=== PATIENT | female | born 1950 | race Caucasian/White ===

== ENCOUNTER 2017-09-18 08:00 | Outpatient (CLI) | payer MEDICARE, OTHER ==
--- NOTE | 2017-09-18 13:06 | PET ---
PET SCAN WITH CT ATTENUATION CORRECTION: HISTORY: 66-year-old female. Breast cancer survivor. Staging/restaging. COMPARISON: 09/05/16, 02/20/17. TECHNIQUE: PET scanning with CT attenuation correction is performed from the base of the brain to the proximal t highs following the intravenous administration of 9.37 mCi F18-FDG. FINDINGS: HEAD/NECK: No abnormal FDG localization. CHEST: No abnormal FDG localization. Note is made of a left-sided diaphragmatic hernia, unchanged. ABDOMEN/PELVIS: No abnormal FDG localization. OSSEOUS STRUCTURES: No abnormal FDG localization. IMPRESSION: No abnormal FDG localization. POS: TC
== END 2017-09-18 08:01 | disposition home or self-care (01) ==
LOC: PET 08:00
PROVIDERS: ATTEND Internal Medicine Hematology & Oncology
DX: C50.919 Malignant neoplasm of unspecified site of unspecified female breast (principal); C78.2 Secondary malignant neoplasm of pleura
CPT/HCPCS: 78815; A9552

== ENCOUNTER 2017-11-15 13:43 | Outpatient (CLI) | payer MEDICARE, OTHER | END 2017-11-15 13:44 | disposition home or self-care (01) | LOC: ULT 13:43 | PROVIDERS: ATTEND Internal Medicine Hematology & Oncology | DX: Z51.11 Encounter for antineoplastic chemotherapy (principal); Z23 Encounter for immunization; C78.2 Secondary malignant neoplasm of pleura; Z79.899 Other long term (current) drug therapy; Z85.3 Personal history of malignant neoplasm of breast | CPT/HCPCS: 93306 ==

== ENCOUNTER 2018-03-12 11:35 | Outpatient (CLI) | payer MEDICARE, OTHER ==
--- NOTE | 2018-03-12 15:40 | PET ---
PET CT: COMPARISON: 09/18/17. CLINICAL HISTORY: Breast cancer, follow-up. FINDINGS: There is no abnormal hypermetabolic mass or adenopathy identified within the neck, chest, abdomen, or pelvis. No hypermetabolic osseous lesions are seen. Prominent sized left side diaphragmatic hernia i s present without inflammation. Incidental note of vascular disease. There are nonspecific ground-gla ss alveolar opacities of the lungs and a slight degree of pleural thickening and subpleural interstit ial prominence, which may be related to sequelae from radiation therapy. IMPRESSION: No scintigraphic evidence of metastatic disease. POS: TC
== END 2018-03-12 11:36 | disposition home or self-care (01) ==
LOC: ULT 11:35
PROVIDERS: ATTEND Internal Medicine Hematology & Oncology
DX: Z51.11 Encounter for antineoplastic chemotherapy (principal); C50.412 Malignant neoplasm of upper-outer quadrant of left female breast; C78.2 Secondary malignant neoplasm of pleura; I08.3 Combined rheumatic disorders of mitral, aortic and tricuspid valves; Z79.899 Other long term (current) drug therapy
CPT/HCPCS: 78815; 93306; A9552

== ENCOUNTER 2018-08-29 07:51 | Outpatient (CLI) | payer MEDICARE, OTHER ==
--- NOTE | 2018-08-29 12:17 | PET ---
PET WITH CT SKULL TO MID THIGH: CLINICAL HISTORY: Breast cancer, malignant neoplasm of upper outer quadrant of left female breast, follow-up. Reference made to 03/12/18. RADIOPHARMACEUTICAL: 9.7 mCi F18-FDG IV. FINDINGS: There is no new hypermetabolic activity of the neck, chest, abdomen, or pelvis to indicate interval d evelopment of metastatic disease. There is a focus of increased activity along the course of the sigm oid colon immediately abutting the urinary bladder, nonspecific. There is a large left diaphragmatic hernia which contains stomach and regional bowel. Nonspecific mosaic attenuation of the pulmonary par enchyma is seen, although is obscured by respiratory motion artifact. There is no new hypermetabolic osseous lesion evident. No significant interval detrimental change. IMPRESSION: 1. No scintigraphic evidence of metastatic disease. 2. Nonspecific mild increased activity along the course of the sigmoid colon abutting the urinary bl adder, some of which could relate to misregistration. The possibility of colitis or mural based lesio n cannot be entirely excluded. If not recently performed, age-appropriate colonic screening would be indicated for further assessment. Correlate clinically in this regard. POS: TC
== END 2018-08-29 07:52 | disposition home or self-care (01) ==
LOC: PET 07:51
PROVIDERS: ATTEND Internal Medicine Hematology & Oncology
DX: Z51.11 Encounter for antineoplastic chemotherapy (principal); C50.919 Malignant neoplasm of unspecified site of unspecified female breast; Z79.899 Other long term (current) drug therapy
CPT/HCPCS: 78815; 93306; A9552

== ENCOUNTER 2018-12-25 12:02 | Outpatient (CLI) | payer MEDICARE, OTHER | END 2018-12-25 12:03 | disposition home or self-care (01) | LOC: ULT 12:02 | PROVIDERS: ATTEND Internal Medicine Hematology & Oncology | DX: Z51.11 Encounter for antineoplastic chemotherapy (principal); C50.412 Malignant neoplasm of upper-outer quadrant of left female breast; C78.2 Secondary malignant neoplasm of pleura; I08.3 Combined rheumatic disorders of mitral, aortic and tricuspid valves; Z79.899 Other long term (current) drug therapy | CPT/HCPCS: 93306 ==

== ENCOUNTER 2019-02-21 12:40 | Outpatient (CLI) | payer MEDICARE, OTHER | END 2019-02-21 12:41 | disposition home or self-care (01) | LOC: ULT 12:40 | PROVIDERS: ATTEND Internal Medicine Hematology & Oncology | DX: Z51.11 Encounter for antineoplastic chemotherapy (principal); C50.412 Malignant neoplasm of upper-outer quadrant of left female breast; I08.3 Combined rheumatic disorders of mitral, aortic and tricuspid valves; Z79.899 Other long term (current) drug therapy | CPT/HCPCS: 93306 ==

== ENCOUNTER 2019-03-06 08:10 | Outpatient (CLI) | payer MEDICARE, OTHER ==
--- NOTE | 2019-03-06 09:58 | PET ---
EXAM: PET CT skull to mid thigh COMPARISON: PET/CT 08/29/2018 HISTORY: Malignant neoplasm upper outer quadrant of the left breast TECHNIQUE: A PET/CT was performed from the skull to the mid thigh after administration of 10.8 millic uries of F-18 FDG. Evaluation was performed on a [employer] workstation. FINDINGS: NECK: No areas of hypermetabolic activity CHEST: There are multiple small subcentimeter focal areas of consolidation which appears slightly mas s like in the posterior aspect of the right lower lobe with maximum SUV value of 2.5. These were not seen on the prior examination. ABDOMEN/PELVIS: No areas of hypermetabolic activity SKELETON: No areas of hypermetabolic activity CT images used for attenuation correction show the patient to have undergone bilateral mastectomies. There is a left-sided Mediport with its tip in the superior vena cava.. IMPRESSION: Areas of hypermetabolic activity in the right lower lobe are nonspecific and could repres ent an infiltrate or recurrent disease. A repeat examination should be performed after treatment for pneumonia.
== END 2019-03-06 08:11 | disposition home or self-care (01) ==
LOC: PET 08:10
PROVIDERS: ATTEND Internal Medicine Hematology & Oncology
DX: C50.412 Malignant neoplasm of upper-outer quadrant of left female breast (principal); C78.2 Secondary malignant neoplasm of pleura; J18.9 Pneumonia, unspecified organism
CPT/HCPCS: 78815; A9552

== ENCOUNTER 2019-04-14 12:00 | Outpatient (CLI) | payer MEDICARE, OTHER ==
[~2019-04-14 12:00] MED LIST: Iopamidol 370 76% 100 ML VIAL ONE
--- NOTE | 2019-04-14 14:17 | CT ---
EXAM: CT of the chest with contrast HISTORY: Left lung mass; history of breast cancer COMPARISON: PET/CT 03/06/2019 TECHNIQUE: Multiple contiguous axial images were obtained in a CT the chest with contrast. Coronal re formats were performed. FINDINGS: HEART: Normal in size without focal cardiac abnormality MEDIASTINUM: No hilar or mediastinal lymphadenopathy. There is elevation of the left hemidiaphragm. LUNGS: No focal infiltrates, nodules, or masses. The previously seen area of groundglass opacity/airs pace opacity in the right lower lobe associated with hypermetabolic activity has almost completely resolved and likely represented an infiltrate. PLEURAL SPACE: No pneumothorax or pleural effusion. CHEST WALL SOFT TISSUES: There is a left-sided Mediport with its tip in the superior vena cava. OSSEOUS STRUCTURES: Degenerative changes in the spine. VISUALIZED SUBDIAPHRAGMATIC STRUCTURES: Unremarkable IMPRESSION: Near complete resolution of the right lower lobe opacity seen on prior exam. This likely represented an infiltrate.
== END 2019-04-14 12:01 | disposition home or self-care (01) ==
LOC: CT 12:00
PROVIDERS: ATTEND Internal Medicine Hematology & Oncology
DX: Z51.11 Encounter for antineoplastic chemotherapy (principal); C50.412 Malignant neoplasm of upper-outer quadrant of left female breast; C78.2 Secondary malignant neoplasm of pleura; R93.7 Abnormal findings on diagnostic imaging of other parts of musculoskeletal system; I08.3 Combined rheumatic disorders of mitral, aortic and tricuspid valves; Z79.899 Other long term (current) drug therapy
CPT/HCPCS: 71260; 93306; Q9967

== ENCOUNTER 2019-09-04 08:09 | Outpatient (CLI) | payer MEDICARE, OTHER ==
--- NOTE | 2019-09-04 12:09 | PET ---
PET CT: HISTORY: 68-year-old female with malignant neoplasm of upper outer quadrant of the left female breast. Patient is ongoing chemotherapy. TECHNIQUE: PET scanning with CT attenuation correction was performed from the base of the brain through the prox imal thighs following the intravenous administration of 11.3 mCi F18-FDG in the left-sided MediPort. COMPARISON: PET CT of 03/06/19. FINDINGS: No marianna hypermetabolism is seen in the neck, chest, axilla, abdomen, or pelvis. No hypermetabolic pu lmonary nodules, liver, adrenal, or skeletal lesions are identified. There is physiologic activity in the GI and tracts, heart, and the visualized portions of the brai n. The CT scan used for attenuation correction demonstrates no evidence of pleural effusions or ascites. Left-sided diaphragmatic hernia containing colon and stomach in the left lower hemithorax is again s een. IMPRESSION: No scintigraphic evidence of metastatic disease. POS: TC
== END 2019-09-04 08:10 | disposition home or self-care (01) ==
LOC: PET 08:09
PROVIDERS: ATTEND Internal Medicine Hematology & Oncology
DX: C50.412 Malignant neoplasm of upper-outer quadrant of left female breast (principal); C78.2 Secondary malignant neoplasm of pleura
CPT/HCPCS: 78815; A9552

== ENCOUNTER 2019-11-18 09:48 | Outpatient (CLI) | payer MEDICARE, OTHER ==
--- NOTE | 2019-11-18 11:21 | CT ---
CTA OF THE CHEST UTILIZING IV CONTRAST AND 3-D REFORMATTED IMAGING INDICATION: Thoracic aortic aneurysm COMPARISON: CT of the thorax dated April 14, 2019 and PET/CT dated 08/29/2018, March 12, 2018 and 2016 FINDINGS: Aorta: There is stable mild aneurysmal dilatation the ascending aorta measuring 4.4 cm. There is stab le mild aneurysmal dilatation of the aortic arch measuring 3.1 cm. The descending thoracic aorta is normal in caliber measuring 2.4 cm. Central pulmonary artery: No central pulmonary embolus demonstrated. Lungs: There are areas of reticular nodularity seen involving the posterior medial segment of the rig ht lower lobe. This appears slightly improved from the prior exam. Reticular nodularity in the right middle lobe has resolved there is persistent atelectasis in the left lower lobe caused by large paraesophageal hernia containing stomach and colon. Upper abdomen: There is a stable 2.1 cm cystic lesion in the posterior, distal pancreatic body on kamron ge 114 of series 2. No additional focal pancreatic lesion is evident. There is a stable 1.3 cm right adrenal adenoma. Left adrenal gland and visualized aspects of the kidneys appear within normal limits. No focal hepatic lesion is evident. The visualized upper abdominal aorta appears within normal limits. There are mild scattered vascular calcifications. Osseous structures: No acute osseous abnormality. There is scattered degenerative and osteoarthritic change present. Mild thoracolumbar scoliosis. IMPRESSION: 1. Mild aneurysmal dilatation of the ascending thoracic aorta and aortic arch, stable to a recent CT evaluation dated April 14, 2019. 2. Improving reticular nodularity of the right middle lobe and right lower lobe. There is some residu al areas of tree-in-bud nodularity within the posterior medial right lower lobe suspicious for persistent area of respiratory bronchiolitis. This can be seen with infectious entities such as viral pneumonia, MAC type infections or recurrent silent aspiration. 3. Stable 2.1 cm cystic lesion involving the pancreatic body. 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 Would recommend a follow-up CT of the abdomen with and without contrast in 6-12 months to document stability. 3. Stable right adrenal adenoma.
[2019-11-18] MEDS ORDERED: Iopamidol-370 76% 500 ML 1 ML ONE (13:55)
== END 2019-11-18 09:49 | disposition home or self-care (01) ==
LOC: CT 09:48
PROVIDERS: ATTEND Internal Medicine Cardiovascular Disease
DX: I71.2 Thoracic aortic aneurysm, without rupture (principal); I77.810 Thoracic aortic ectasia; R91.8 Other nonspecific abnormal finding of lung field; K86.89 Other specified diseases of pancreas; D35.01 Benign neoplasm of right adrenal gland
CPT/HCPCS: 71275; Q9967

== ENCOUNTER 2020-02-19 08:31 | Outpatient (CLI) | payer MEDICARE, OTHER ==
--- NOTE | 2020-02-19 13:37 | PET ---
Nuclear medicine FDG PET/CT: (Positron emission tomography and computed tomography) DATE: 02/19/2020 HISTORY: 69-year-old female with malignant neoplasm of upper outer quadrant of left female breast. Secondary m alignant neoplasm of pleura. Follow-up. COMPARISON: 09/04/2019 TECHNIQUE: IV injection of F-18 fluorodeoxyglucose (FDG) dose: 13 mCi. PET scan and attenuation correction CT performed from skull base to proximal thighs. FINDINGS: SUV (standard uptake values) numbers given are maximum SUVs. QCLR used. Again noted is the symmetrically increased uptake in the bilateral palatine tonsils (right side SUV 6 .0) and lingual tonsil (SUV 5.1). This is probably hyperplasia. Otherwise no suspicious hypermetabolic activity in the neck, chest, abdomen, or pelvis. Again noted is the large left diaphragmatic hernia. No pleural effusion. Again noted are the nonspeci fic scattered, ill-defined, unorganized mild groundglass changes asymmetrically distributed in both lungs. The pattern is somewhat similar to that of the prior study, and are nonspecific. See prior rep ort. High-grade lumbar spondylosis associated with scoliosis. No hypermetabolic suspicious activity in the pleura. No pleural effusion. Left-sided implantable vascular access port. IMPRESSION: 1. No evidence of active metastatic disease. 2. Left diaphragmatic hernia. 3. Nonspecific mild diffuse bilateral groundglass pulmonary densities, similar to prior study. 4. Severe lumbar spondylosis and associated scoliosis.
== END 2020-02-19 08:32 | disposition home or self-care (01) ==
LOC: PET 08:31
PROVIDERS: ATTEND Internal Medicine Hematology & Oncology
DX: C50.919 Malignant neoplasm of unspecified site of unspecified female breast (principal); C78.2 Secondary malignant neoplasm of pleura; K44.9 Diaphragmatic hernia without obstruction or gangrene; M47.816 Spondylosis without myelopathy or radiculopathy, lumbar region; M41.9 Scoliosis, unspecified; R91.8 Other nonspecific abnormal finding of lung field
CPT/HCPCS: 78815; A9552

== ENCOUNTER 2020-08-05 08:28 | Outpatient (CLI) | payer MEDICARE, OTHER ==
--- NOTE | 2020-08-05 14:08 | PET ---
PET CT: 08/05/20 HISTORY: 69-year-old female with malignant neoplasm of upper outer quadrant of the left female breast. Exam re quested to evaluate response to treatment and subsequent planning. TECHNIQUE: PET scan with CT attenuation correction was performed from the base of the brain through the proximal thighs following the intravenous administration of 12 millicuries of 15-fluorodeoxyglucose in the va lve in the Mediport. COMPARISON: 02/19/20. No marianna hypermetabolism is seen in the neck, chest, axillae, abdomen or pelvis. No hypermetabolic pulmonary nodules, liver, adrenal, or skeletal lesions are seen. There is physiologic activity in the GI and tracts, heart and visualized portions of the brain. The CT scan used for attenuation correction demonstrates no evidence for pleural effusions or ascites . Parenchymal lung changes including ground glass opacities and left basilar atelectatic changes, lar ge left diaphragmatic hernia, lumbar spondylosis and associated scoliosis are stable. IMPRESSION: No evidence of metastatic disease. POS: TC
== END 2020-08-05 08:29 | disposition home or self-care (01) ==
LOC: PET 08:28
PROVIDERS: ATTEND Internal Medicine Hematology & Oncology
DX: C50.412 Malignant neoplasm of upper-outer quadrant of left female breast (principal)
CPT/HCPCS: 78815; A9552

== ENCOUNTER 2021-02-11 08:08 | Outpatient (CLI) | payer MEDICARE, OTHER | END 2021-02-11 08:09 | disposition home or self-care (01) | LOC: PET 08:08 | PROVIDERS: ATTEND Internal Medicine Hematology & Oncology | DX: C50.919 Malignant neoplasm of unspecified site of unspecified female breast (principal); C78.2 Secondary malignant neoplasm of pleura; J90 Pleural effusion, not elsewhere classified | CPT/HCPCS: 78815; A9552 ==

== ENCOUNTER 2021-08-12 08:35 | Outpatient (CLI) | payer MEDICARE, OTHER | END 2021-08-12 08:36 | disposition home or self-care (01) | LOC: PET 08:35 | PROVIDERS: ATTEND Internal Medicine Hematology & Oncology | DX: C50.412 Malignant neoplasm of upper-outer quadrant of left female breast (principal); C78.02 Secondary malignant neoplasm of left lung; C78.01 Secondary malignant neoplasm of right lung | CPT/HCPCS: 78815; A9552 ==

== ENCOUNTER 2022-02-13 13:48 | Outpatient (CLI) | payer MEDICARE, OTHER ==
[2022-02-13 15:06] LABS: Hemoglobin 13.9 g/dL (12.0-15.5); MDiff Complete? YES; Mean Corpuscular HGB CONC 32.6 g/dL (32.0-36.0); Mean Corpuscular Volume 91.8 fl (81.6-98.3); Mean Platelet Volume 9.4 fl (7.4-10.4); Platelet Count 294 10x3/uL (150-450); Red Blood Cell (RBC) Count 4.64 10x6/uL (3.90-5.03); White Blood Cell (WBC) Count 6.3 10x3/uL (3.5-10.5)
[2022-02-13 15:25] LABS: ALT (SGPT) 20 U/L (8-55); AST (SGOT) 19 U/L (5-34); Albumin 4.2 g/dL (3.4-4.8); Alkaline Phosphatase 51 U/L (40-110); Anion Gap 15 mmol/L (10-20); BUN (Urea Nitrogen) 29 mg/dL (9.8-20.1); Bilirubin, Total 0.3 mg/dL (0.2-1.2); Calc. Creatinine Clearance 0 mL/min (70-130); Calcium 9.7 mg/dL (7.8-10.44); Carbon Dioxide 27 mmol/L (23-31); Chloride 104 mmol/L (98-107); Globulin 3.3 g/dL (2.4-3.5); Glucose 115 mg/dL (83-110); Potassium 4.6 mmol/L (3.5-5.1); Protein, Total 7.5 g/dL (5.8-8.1); Sodium 141 mmol/L (136-145)
[2022-02-13 15:36] LABS: Band 1 % (5-11); Lymphocytes 15 % (21-51); Monocytes 3 % (0-10); Neutrophil 78 % (42-75); Reactive Lymphocytes 3 % (0-10)
[2022-02-13 15:37] LABS: Platelet Morphology Comment Appears Adequate; RBC Morphology Normal
[2022-02-13 23:34] LABS: SARS-CoV-2 PCR by NAA Not Detected (NotDetected)
== END 2022-02-13 13:49 | disposition home or self-care (01) ==
LOC: LABBT 13:48
PROVIDERS: ATTEND Internal Medicine Cardiovascular Disease
DX: Z01.812 Encounter for preprocedural laboratory examination (principal); Z20.822 Contact with and (suspected) exposure to COVID-19
CPT/HCPCS: 80053; 85025; U0003; U0005

== ENCOUNTER 2022-02-16 10:40 | Day surgery (SDC) | payer MEDICARE, OTHER ==
[2022-02-15 09:59] VITALS: BMI 28.9
[2022-02-16] MEDS ORDERED: PROPOFOL 20 ML ONE (14:02)
== END 2022-02-16 15:20 | disposition home or self-care (01) ==
LOC: SDC 10:40
PROVIDERS: ATTEND Internal Medicine Cardiovascular Disease
PROC: B246ZZ4 Ultrasonography of Right and Left Heart, Transesophageal (ICD-10-PCS; principal; 2022-02-16)
DX: I08.3 Combined rheumatic disorders of mitral, aortic and tricuspid valves (principal); I71.2 Thoracic aortic aneurysm, without rupture; I42.9 Cardiomyopathy, unspecified; I47.1 Supraventricular tachycardia; I11.0 Hypertensive heart disease with heart failure; I50.9 Heart failure, unspecified; C50.911 Malignant neoplasm of unspecified site of right female breast; Z79.2 Long term (current) use of antibiotics; Z79.52 Long term (current) use of systemic steroids; Z79.899 Other long term (current) drug therapy; Z88.1 Allergy status to other antibiotic agents; Z88.2 Allergy status to sulfonamides; Z88.5 Allergy status to narcotic agent; Z91.013 Allergy to seafood
CPT/HCPCS: 93312; J2704

== ENCOUNTER 2022-03-13 09:30 | Outpatient (CLI) | payer MEDICARE, OTHER | END 2022-03-13 09:31 | disposition home or self-care (01) | LOC: NM 09:30 | PROVIDERS: ATTEND Internal Medicine Cardiovascular Disease | DX: I42.9 Cardiomyopathy, unspecified (principal) | CPT/HCPCS: 78472; A9604 ==

== ENCOUNTER 2022-07-10 08:24 | Outpatient (CLI) | payer MEDICARE, OTHER | END 2022-07-10 08:25 | disposition home or self-care (01) | LOC: NM 08:24 | PROVIDERS: ATTEND Internal Medicine Hematology & Oncology | DX: I42.9 Cardiomyopathy, unspecified (principal) | CPT/HCPCS: 78472; A9604 ==

== ENCOUNTER 2023-01-30 09:30 | Outpatient (CLI) | payer MEDICARE, OTHER | END 2023-01-30 09:31 | disposition home or self-care (01) | LOC: PET 09:30 | PROVIDERS: ATTEND Internal Medicine Hematology & Oncology | DX: C50.412 Malignant neoplasm of upper-outer quadrant of left female breast (principal); C78.2 Secondary malignant neoplasm of pleura; Z85.3 Personal history of malignant neoplasm of breast | CPT/HCPCS: 78815; A9552 ==

== ENCOUNTER 2023-06-27 08:48 | Outpatient (CLI) | payer MEDICARE, OTHER | END 2023-06-27 08:49 | disposition home or self-care (01) | LOC: RAD 08:48 | PROVIDERS: ATTEND Internal Medicine Critical Care Medicine | DX: R06.00 Dyspnea, unspecified (principal) | CPT/HCPCS: 71046 ==

== ENCOUNTER 2023-08-07 08:00 | Outpatient (CLI) | payer MEDICARE, OTHER | END 2023-08-07 08:01 | disposition home or self-care (01) | LOC: PET 08:00 | PROVIDERS: ATTEND Internal Medicine Hematology & Oncology | DX: C50.412 Malignant neoplasm of upper-outer quadrant of left female breast (principal); C78.2 Secondary malignant neoplasm of pleura; R59.0 Localized enlarged lymph nodes; R91.8 Other nonspecific abnormal finding of lung field | CPT/HCPCS: 78815; A9552 ==

== ENCOUNTER 2023-09-03 05:58 | Day surgery (SDC) | payer MEDICARE, OTHER ==
[2023-08-31 14:37] VITALS: BMI 26.6
[2023-09-03] MEDS ORDERED: fentaNYL PF 100 MCG/2 ML SYRINGE ONE (06:51)
[2023-09-03] MEDS ORDERED: Bupivacaine 0.25% HCL 30 ML VIAL ONE (07:00)
[2023-09-03] MEDS ORDERED: EPINEPHrine 1 MG/ML VIAL ONE (07:00)
[2023-09-03] MEDS ORDERED: CEFAZOLIN 2 GM VIAL ONE (07:14)
[2023-09-03] MEDS ORDERED: Sodium Chloride 0.9% 100 ML ONE (07:15)
[2023-09-03] MEDS ORDERED: PROPOFOL 200 MG/20 ML VIAL ONE (07:39)
[2023-09-03] MEDS ORDERED: Glycopyrrolate 0.2 MG/ML 5 ML SYRINGE ONE (07:39)
[2023-09-03] MEDS ORDERED: Lidocaine 1% PF 5 ML VIAL ONE (07:39)
[2023-09-03] MEDS ORDERED: Ondansetron PF 4 MG/2 ML Vial ONE (07:39)
[2023-09-03] MEDS ORDERED: Rocuronium Bromide 10 MG/ML (10ML VIAL) ONE (07:39)
[2023-09-03] MEDS ORDERED: NEOSTIGMINE 3 MG/3 ML SYR 3 MG/3 ML SYRINGE ONE (07:39)
== END 2023-09-03 10:21 | disposition home or self-care (01) ==
LOC: SDC 05:58
PROVIDERS: ATTEND Thoracic Surgery (Cardiothoracic Vascular Surgery)
PROC: 07B74ZX Excision of Thorax Lymphatic, Percutaneous Endoscopic Approach, Diagnostic (ICD-10-PCS; principal; 2023-09-03)
DX: R59.0 Localized enlarged lymph nodes (principal); C50.919 Malignant neoplasm of unspecified site of unspecified female breast; Z90.710 Acquired absence of both cervix and uterus; Z88.1 Allergy status to other antibiotic agents; Z88.5 Allergy status to narcotic agent; Z91.013 Allergy to seafood
CPT/HCPCS: 39402; J0171; 88184; 88185; 88189; 88307; 88312; J2405; J2704; J3490; S0020